=== PATIENT | male | born 1970 | race Caucasian/White ===

== ENCOUNTER 2022-02-14 14:37 | Emergency (ER) | payer OTHER, SELFPAY ==
--- NOTE | ~2022-02-14 | XR_ITS ---
EXAM: XR hand LT min 3V HISTORY: hand in lawnmower, injury to 3/4 digit distal COMPARISON: None available FINDINGS: Normal mineralization. No fracture or dislocation. Lytic lesion in the proximal aspect of the left fifth proximal phalange, well marginated, slightly expansile, without aggressive features. T his mostly represents an enchondroma. Joint spaces maintained. No erosion or periosteal change. Soft tissue injury of the middle and ring fingers. IMPRESSION: No acute osseous finding in the left hand. Incidental likely enchondroma in the left fifth proximal p halange which requires no additional workup unless accompanied by pain or other symptoms. Reviewed, dictated and finalized at location K. IMPRESSION: No acute osseous finding in the left hand. Incidental likely enchondroma in the left fifth proximal phalange which requires no additional workup unless accomp anied by pain or other symptoms.
[2022-02-14] MEDS: TETANUS,DIPHTHERIA,AC PERTUSSIS ADULT (0.5 ML) BOOSTRIX IM (14:59)
--- NOTE | 2022-02-14 14:59 | ED.WOUNDLAC ---
HPI - Wound/Laceration General Chief Complaint: Wound/Laceration <Giovani Gresham MD - Last Filed: 02/14/22 16:20> Stated Complaint: laceration <Giovani Gresham MD - Last Filed: 02/14/22 16:20> Time Seen by Provider: 02/14/22 14:39 <Giovani Gresham MD - Last Filed: 02/14/22 16:20> Source: patient <Giovani Gresham MD - Last Filed: 02/14/22 16:20> History of Present Illness HPI narrative: Patient presents with a hand injury. He was mowing the grass there was a clogged he reached in wall the blade was moving a his hands were caught. He presented immediately to the ER for further evaluation. His pain is on his left hand on the third and fourth digit distally it is achy, constant, radiates up his arm worse with moving his fingers. He denies any other injuries. He does not remember when his last tetanus shot was <Giovani Gresham MD - Last Filed: 02/14/22 16:20> Related Data Allergies/Adverse Reactions: Allergies Allergy/AdvReac Type Severity Reaction Status Date / Time No Known Allergies Allergy Unverified 02/14/22 15:11 <Giovani Gresham MD - Last Filed: 02/14/22 16:20> Review of Systems Review of Systems: CONSTITUTIONAL: Denies fever, chills, or sweats. EYES: Denies visual changes, redness, or discharge. ENT: Denies rhinorrhea, congestion, sore throat, or otalgia. CARDIOVASCULAR: Denies chest pain, palpitations, or edema. RESPIRATORY: Denies cough or dyspnea. GASTROINTESTINAL: Denies abdominal pain, nausea, vomiting, or diarrhea. GENITOURINARY: Denies dysuria or hematuria. SKIN: Denies rash or itching. MUSCULOSKELETAL: Denies back pain, joint pain, or myalgia. NEUROLOGIC: Denies headache, numbness, dizziness, or weakness. PSYCHIATRIC: Denies anxiety or depression. <Giovani Gresham MD - Last Filed: 02/14/22 16:20> All systems reviewed & are unremarkable except as noted in HPI and below <Giovani Gresham MD - Last Filed: 02/14/22 16:20> [facility] Past Medical History Medical History: Medical History (Updated 02/14/22 @ 16:02 by Giovani Gresham MD) Essential hypertension <Giovani Gresham MD - Last Filed: 02/14/22 16:20> Family History Family History: Family History Mother Patient's mother is , Onset Age: 76 Father Patient's father is , Onset Age: 81 <Giovani Gresham MD - Last Filed: 02/14/22 16:20> Social History Social History: Social History Years smoked: 15 Smoking status: Former smoker Tobacco type: cigarettes Alcohol intake: current Drinks per week: 1 <Giovani Gresham MD - Last Filed: 02/14/22 16:20> Exam Narrative: GENERAL: Well-appearing, well-nourished, and in no acute distress. HEAD: Normocephalic, atraumatic. EYES: PERRLA and EOMI. ENT: Nares clear, no rhinorrhea or epistaxis. Mucous membranes moist. NECK: Supple. No masses. No JVD EXTREMITIES: Normal range of motion. No edema. There is a flap on his fat pad on the vulvar surface of the third digit there is fat pad loss of the volar aspect of the fourth digit there is active bleeding. No bone visualized on initial evaluation SKIN: Warm, dry, no rash. NEURO: No focal deficits. Alert and oriented x3. PSYCH: Normal mood and affect. <Giovani Gresham MD - Last Filed: 02/14/22 16:20> Course Reevaluation(s) Reevaluation #1: Patient resting comfortably will can instructions given. Patient is comfortable with outpatient plan. <Giovani Gresham MD - Last Filed: 02/14/22 16:20> Date: 02/14/22 <Giovani Gresham MD - Last Filed: 02/14/22 16:20> Time: 15:57 <Giovani Gresham MD - Last Filed: 02/14/22 16:20> Vital Signs Vital signs: Vital Signs Temperature 36.4 C 02/14/22 16:09 Pulse Rate 85 02/14/22 16:09 Respiratory Rate 18 02/14/22 16:09 Blood Pressure 137/103 H 02/14/22 16:0
[2022-02-14] MEDS: HYDROcodone/acetaminophen (*CRX) 5-325 MG TABLET 1 TAB PO (15:07)
[2022-02-14] MEDS: LIDO 1%/EPINEPHRINE 1:100,000 10 ML VIAL (15:09)
[2022-02-14 16:09] VITALS: BP 137/103; PULSE 85; RESP 18; TEMP 36.4; O2SAT 97
== END 2022-02-14 16:12 | disposition home or self-care (01) ==
PROVIDERS: Emergency Provider Emergency Medicine
DX: S61.215A Laceration without foreign body of left ring finger without damage to nail, initial encounter (principal); S61.213A Laceration without foreign body of left middle finger without damage to nail, initial encounter; Z23 Encounter for immunization; I10 Essential (primary) hypertension; Z87.891 Personal history of nicotine dependence; W28.XXXA Contact with powered lawn mower, initial encounter
CPT/HCPCS: 12002; 73130; 90471; 90715; 99283; A9270